=== PATIENT | male | born 1970 | race Caucasian/White ===

== ENCOUNTER 2019-07-20 13:03 | Emergency (ER) | payer SELFPAY ==
--- NOTE | 2019-07-20 14:40 | CR ---
Chest: Two views of the chest were obtained. Comparison: No previous chest x-ray. Heart size and mediastinum are normal. Lungs are clear. Bony structures appear within normal limits for age. Impression: 1. Nothing acute is seen on two-view chest x-ray. Diagnostic code #1 This report was dictated in [place] Standard Time
--- NOTE | 2019-07-20 14:40 | CR ---
Abdomen: Supine view of the abdomen was obtained. Comparison: No prior abdominal x-ray. Scattered gas within small bowel and colon is seen which appears within normal limits. No abnormal calcifications or discrete soft tissue abnormality is seen. Bony structures appear within normal limits for age. Impression: 1. Nothing acute is seen on supine abdominal x-ray. Diagnostic code #1 This report was dictated in [place] Standard Time
--- NOTE | 2019-07-20 14:49 | EDM.PDOC ---
<Jo Ann Miranda - Last Filed: 07/20/19 14:53> ED HPI GENERAL MEDICAL PROBLEM - General Chief Complaint: Neurological Problem Time Seen by Provider: 07/20/19 13:31 Source of Information: Reports: Patient History Limitations: Reports: No Limitations - History of Present Illness INITIAL COMMENTS - FREE TEXT/NARRATIVE: 48 year old white male with complaints of dizziness. He reports that in February of this year he was seen in [place] and treated for a TIA. He spent three days in the hospital and then was discharged to home. Did not have new medications ordered at discharge or any follow up appointments. He does not have a primary doctor. The patient reports that 4 days ago he began to feel dizzy and fatigue. He relaxed the entire weekend and did not feel much better. Last night he developed shortness of breath, blurred vision and fatigue. At 0230 in the morning he states that he had right shoulder and abdominal pain. He woke this morning and went to work still having abdominal pain, but states that he decided to come to the ED because of continued dizziness. He states that he feels dizzy laying in bed at the time of evaluation. Pt also reports chronic constipation and a family history of colon cancer. He was supposed to have a colonoscopy recently but he missed that appt due to work. The patient seems very anxious about his bowels. He states that he has chronic constipation and it is normal for him to go 4 days without having a bowel movement. He says that he is not able to eat much because he feels full very quickly. Right Arm Pain Score (Numeric/FACES): 5 - Related Data Allergies Allergy/AdvReac Type Severity Reaction Status Date / Time No Known Allergies Allergy Verified 07/20/19 13:18 Home Meds: Home Meds Aspirin [Halfprin] 1 tab PO DAILY 07/20/19 [History] Omeprazole 20 mg PO BIDAC #60 cap.sr 07/20/19 [Rx] Past Medical History HEENT History: Reports: Other (See Below) Other HEENT History: sinus surgery Gastrointestinal History: Reports: Other (See Below) Other Gastrointestinal History: Hook worm contracted when in [facility] in February and that has been treated but stomach does not feel the same Musculoskeletal History: Reports: Other (See Below) Other Musculoskeletal History: knee scopes Neurological History: Reports: TIA Social & Family History - Tobacco Use Smoking Status *Q: Never Smoker - Caffeine Use Caffeine Use: Reports: Coffee - Recreational Drug Use Recreational Drug Use: No ED ROS GENERAL - Review of Systems Review Of Systems: See Below Constitutional: Reports: Weakness, Fatigue, Decreased Appetite. Denies: Fever, Chills HEENT: Reports: No Symptoms Respiratory: Reports: No Symptoms Cardiovascular: Reports: Lightheadedness. Denies: Chest Pain, Blood Pressure Problem, Dyspnea on Exertion, Edema, Palpitations, Syncope Endocrine: Reports: Fatigue GI/Abdominal: Reports: Anorexia (states early sateity), Constipation. Denies: Abdominal Pain, Black Stool, Bloody Stool, Diarrhea, Nausea, Vomiting : Reports: No Symptoms Musculoskeletal: Reports: Shoulder Pain (right shoulder pain that started early this am) Skin: Reports: No Symptoms Neurological: Reports: Dizziness, Headache (states that he has had a headache since his TIA in February. He takes 2 tylenol twice per day for this. It is a frontal headache.). Denies: Confusion, Numbness, Syncope, Difficulty Walking Psychiatric: Reports: No Symptoms Hematologic/Lymphatic: Reports: No Symptoms Immunologic: Reports: No Symptoms ED EXAM, NEURO - Physical Exam Exam: See Below Exam Limited By: No Limitations General Appearance: Alert, WD/WN, Anxious (became more anxious throughout the assessment) Eye Exam: Bilateral Eye: PERRL Ears: Normal External Exam, Hearing Grossly Normal Nose: Normal Inspection Throat/Mouth: Normal Inspection, Normal Lips, Normal Voice, No Airway Compromise Head Exam: Atraumatic, Normocephalic Neck: Normal Inspection, Supple Respiratory/Chest: No Respiratory Distress, Lungs Clear, Normal Breath Sounds, Chest Non-Tender Cardiovascular: Normal Peripheral Pulses, Regular Rate, Rhythm, No Edema, No Murmur GI/Abdominal: Normal Bowel Sounds, Soft, Non-Tender, No Distention, No Mass (Male) Exam: Deferred Rectal (Males) Exam: Deferred Neurological: Alert, Normal Mood/Affect, CN II-XII Intact, Normal Gait, Oriented x 3 Back Exam: Normal Inspection, Full Range of Motion Extremities: Normal Inspection, Normal Range of Motion, Non-Tender, No Pedal Edema, Normal Capillary Refill Psychiatric: Normal Affect, Anxious Skin Exam: Warm, Dry, Intact, Normal Color, No Rash Course - Vital Signs Last Recorded V/S: Last Vital Signs Temp 97.9 F 07/20/19 13:12 Pulse 75 07/20/19 13:12 Resp 20 07/20/19 13:12 BP 126/98 H 07/20/19 13:12 Pulse Ox 95 07/20/19 13:12 - Orders/Labs/Meds Orders: Active Orders 24 hr Category Date Time Status EKG 12 Lead [EKG Documentation Completion] [RC] STAT Care 07/20/19 13:55 Active Labs: Laboratory Tests 07/20/19 07/20/19 07/20/19 Range/Units 14:13 14:13 14:13 WBC 6.52 (4.23-9.07) K/mm3 RBC 5.15 (4.63-6.08) M/mm3 Hgb 15.3 (13.7-17.5) gm/dl Hct 43.8 (40.1-51.0) % MCV 85.0 (79.0-92.2) fl MCH 29.7 (25.7-32.2) pg MCHC 34.9 (32.2-35.5) g/dl RDW Std Deviation 38.6 (35.1-43.9) fL Plt Count 300 (163-337) K/mm3 MPV 9.0 L (9.4-12.3) fl Neut % (Auto) 62.0 (34.0-67.9) % Lymph % (Auto) 28.4 (21.8-53.1) % Barrow % (Auto) 7.8 (5.3-12.2) % Eos % (Auto) 1.1 (0.8-7.0) Baso % (Auto) 0.5 (0.1-1.2) % Neut # (Auto) 4.05 (1.78-5.38) K/mm3 Lymph # (Auto) 1.85 (1.32-3.57) K/mm3 B[place] # (Auto) 0.51 (0.30-0.82) K/mm3 Eos # (Auto) 0.07 (0.04-0.54) K/mm3 Baso # (Auto) 0.03 (0.01-0.08) K/mm3 Sodium 136 (136-145) mEq/L Potassium 4.1 (3.5-5.1) mEq/L Chloride 102 (98-107) mEq/L Carbon Dioxide 26 (21-32) mEq/L Anion Gap 12.1 (5-15) BUN 13 (7-18) mg/dL Creatinine 1.3 (0.7-1.3) mg/dL Est Cr Clr Drug Dosing 74.01 mL/min Estimated GFR (MDRD) 59 (>60) mL/min BUN/Creatinine Ratio 10.0 L (14-18) Glucose 97 (74-106) mg/dL Calcium 9.4 (8.5-10.1) mg/dL Total Bilirubin 0.4 (0.2-1.0) mg/dL AST 21 (15-37) U/L ALT 43 (16-63) U/L Alkaline Phosphatase 64 (46-116) U/L Troponin I < 0.017 (0.00-0.056) ng/mL Total Protein 7.3 (6.4-8.2) g/dl Albumin 3.9 (3.4-5.0) g/dl Globulin 3.4 gm/dL Albumin/Globulin Ratio 1.2 (1-2) TSH 3rd Generation 2.137 (0.358-3.74) uIU/mL Meds: Medications Discontinued Medications Generic Name Dose Route Start Last Admin Trade Name Freq PRN Reason Stop Dose Admin Magnesium Citrate 296 ml 07/20/19 15:50 Citrate Of Magnesia PO 07/20/19 15:51 ONETIME ONE Departure - Departure Disposition: Home, Self-Care 01 Clinical Impression: Abdominal pain, Colon spasm, GERD (gastroesophageal reflux disease) - Discharge Information Prescriptions: Omeprazole 20 mg PO BIDAC #60 cap.sr Instructions: Gastroesophageal Reflux Disease, Adult, [id number] Referrals: PCP,None [Primary Care Provider] - Forms: ED Department Discharge Additional Instructions: Prilosec 20 mg twice daily. Mag citrate, drink one half of the bottle when you get home. Not had a major BM by tomorrow morning drink the other half. [facility] week or next available appointment. Asked to have your cholesterol/lipids checked ideally before the appointment. Inquire about getting a referral for colonoscopy, probable endoscopy needed as well. Return to ED as needed. <Del Ricci - Last Filed: 07/21/19 11:40> Course - Orders/Labs/Meds Meds: Medications Discontinued Medications Generic Name Dose Route Start Last Admin Trade Name Freq PRN Reason Stop Dose Admin Magnesium Citrate 296 ml 07/20/19 15:50 Citrate Of Magnesia PO 07/20/19 15:51 ONETIME ONE - Re-Assessments/Exams Free Text/Narrative Re-Assessment/Exam: 07/20/19 15:51 Initial hx and exam was done by DONOVAN Burch student. I agree with hx and exam as documented. He was placed on a statin last summer for elevated lipids after his TIA but stopped taking that within 2 weeks due to untolerable side effects. I have also examined and interviewed patient. Abdominal x-rays do show somewhat increased stool and gas in the colon. Of concern he does have a very strong family history for colon cancer. He also has been having difficulty with a lot of heartburn recently, taking a lot of Tums. We are sending a bottle of mag citrate home with him. Going to put him on Prilosec 20 mg twice a day. He needs to see a clinic provider soon and get scheduled for colonoscopy and probable endoscopy as well. He needs to have his cholesterol checked and find a way to work with that as needed. Discharge instructions as documented. 07/21/19 11:39 Departure - Departure Time of Disposition: 15:53 Condition: Fair
[2019-07-20] MEDS ORDERED: Magnesium Citrate Solution 296 ML Bottle PO ONE (15:50)
== END 2019-07-20 16:17 | disposition home or self-care (01) ==
LOC: JD.ED 13:03
DX: K58.9 Irritable bowel syndrome, unspecified (principal); K21.9 Gastro-esophageal reflux disease without esophagitis; Z79.82 Long term (current) use of aspirin; Z86.73 Personal history of transient ischemic attack (TIA), and cerebral infarction without residual deficits
CPT/HCPCS: 36415; 71046; 71046-26; 74018; 74018-26; 80053; 84443; 84484; 85025; 93005; 93010; 99283; 99284-25

== ENCOUNTER 2023-05-30 11:40 | Emergency (ER) | payer OTHER ==
[2023-05-30] MEDS ORDERED: Ondansetron 4 MG Tab.DIS PO ONE (12:52)
[2023-05-30] MEDS ORDERED: Acetaminophen 325 MG Tab PO ONE (12:52)
[2023-05-30 13:13] LABS: CORONAVIRUS COVID-19 NAA NEGATIVE (NEGATIVE); INFLUENZA A NAA NEGATIVE (NEGATIVE)
== END 2023-05-30 13:39 | disposition home or self-care (01) ==
LOC: JD.ED 11:40
DX: R42 Dizziness and giddiness (principal); R11.0 Nausea; Z20.822 Contact with and (suspected) exposure to COVID-19
CPT/HCPCS: 0240U; 70450; 99284; A9270; 99283